=== PATIENT | female | born 1960 | race Caucasian/White ===

== ENCOUNTER 2019-08-10 13:36 | Outpatient (CLI) | payer BC ==
--- NOTE | 2019-08-10 14:45 | MMO ---
Bilateral MAMMO Bilat Diag [id number]. CLINICAL HISTORY: Patient is 59 years old and is seen for diagnostic exam. The patient has no family history of breast cancer. The patient has no personal history of cancer. VIEWS: The views performed were: bilateral craniocaudal with tomosynthesis; bilateral mediolateral oblique with tomosynthesis; and bilateral mediolateral with tomosynthesis. This study has been interpreted with the assistance of computer-aided detection. MAMMOGRAM FINDINGS: The breasts are heterogeneously dense, which could obscure a lesion on mammography. NO MAMMOGRAPHIC OR SONOGRAPHIC ABNORMALITIES ARE PRESENT TO CORRELATE WITH THE SITE OF PALPABLE CONCERN OF THE LEFT UPPER BREAST. THE PATIENT WILL BE REFERRED BACK TO HER CLINICIAN FOR FURTHER CARE. BIOPSY SHOULD NOT BE PRECLUDED BY THE ABSCENCE OF IMAGING FINDINGS, IN THE SETTING OF CLINICAL CONCERN FOR MALIGNANCY. There are no suspicious masses, suspicious calcifications, or new areas of architectural distortion. IMPRESSION: THERE IS NO MAMMOGRAPHIC EVIDENCE OF MALIGNANCY. A ROUTINE FOLLOW-UP MAMMOGRAM IN 1 YEAR IS RECOMMENDED. THE RESULTS OF THIS EXAM WERE SENT TO THE PATIENT. ACR BI-RADS Category 2 - Benign finding MAMMOGRAPHY NOTE: 1. A negative mammogram report should not delay a biopsy if a dominant of clinically suspicious mass is present. 2. Approximately 10% to 15% of breast cancers are not detected by mammography. 3. Adenosis and dense breasts may obscure an underlying neoplasm. Reported by: KATJA SUMMERS MD Electonically Signed: [id number]
--- NOTE | 2019-08-10 15:22 | ULT ---
SOFT TISSUE ULTRASOUND OF THE UPPER LEFT CHEST WALL ADDITIONAL WHELAN SCALE ULTRASOUND IMAGES WERE OBTAINED OF THE LEFT SERNOCLAVICULAR JOINT: TECHNIQUE: Whelan scale images were obtained of the regions of palpable interest in the left upper chest wall. FINDINGS: Within the upper left chest wall in the palpable region of interest, no suspicious sonographic mass o r lymphadenopathy is noted. The visualized chest wall appears within normal limits. Upon further discussion with the patient, the patient reported that the palpable abnormality was near the sternoclavicular joint and not the upper left breast. Ultrasound evaluation of the left sternoclavicular joint demonstrates some mild hypertrophic change i nvolving the bones of the manubrium and clavicular head consistent with osteoarthrosis. There is als o specular reflectors within the hypertrophied joint capsule consistent with calcium deposition. The re is also mild to moderate joint effusion within the left sternoclavicular joint. IMPRESSION: 1. No suspicious sonographic abnormality is seen within the left upper chest wall. 2. There is hypertrophic change with associated joint effusion and joint capsular hypertrophy of the left sternoclavicular joint. The patient reports this joint gets inflamed and red with significant pain with referral of the pain along the anterior left chest wall. With the findings that are curren tly presented, findings can be seen with a crystalline-induced arthropathy such as gout or pseudogout . Inflammatory arthropathies can also present this way. Recommend correlation with radiographic niesha luation of the left sternoclavicular joint in addition to radiographic evaluation of the hands. Look ing for imaging markers of inflammatory or crystalline induced arthropathy. Rheumatology consul tation with laboratory workup may be helpful as well. POS: OFF
== END 2019-08-10 13:37 | disposition home or self-care (01) ==
LOC: BICMAMMO 13:36
PROVIDERS: ATTEND Family Medicine
DX: N63.20 Unspecified lump in the left breast, unspecified quadrant (principal)
CPT/HCPCS: 77066; G0279

== ENCOUNTER 2019-10-08 07:57 | Outpatient (CLI) | payer BC ==
--- NOTE | 2019-10-08 08:53 | CT ---
CT ABDOMEN AND PELVIS WITH IV CONTRAST 10/08/2019 CLINICAL INFORMATION: Mid abdominal pain and left lower quadrant abdominal pain since May. Constipation. COMPARISON: 01/12/2019 Technique: Multiple contiguous axial CT images are obtained through the abdomen and pelvis with IV contrast. Cor onal reformatted images are provided. FINDINGS: Lower Chest: Atelectasis right lung base. Vessels: Vascular calcifications are seen in the abdominal aorta and involving the iliac arteries. Abdomen: Portal vein:Patent Gallbladder: Within normal limits for CT imaging. Liver: within normal limits. Spleen: within normal limits. Pancreas: within normal limits. Adrenals: within normal limits. Kidneys: within normal limits. Bowel: Small to moderate amount of retained fecal material is seen throughout the colon. Loops of sma ll bowel are normal in caliber. Appendix: The appendix is visualized and normal in caliber. Peritoneum: No ascites or free air; no fluid collection. Mesentery and Retroperitoneum: No enlarged mesenteric or retroperitoneal lymph nodes. Abdominal Wall: Tiny fat-containing umbilical hernia is again present. Pelvis: Reproductive Organs: Uterus is not visualized and likely surgically absent. Pelvis within normal limits. Bladder: within normal limits. Bones: Mild degenerative changes are seen in the spine. IMPRESSION: 1. No acute findings are seen in the abdomen or pelvis. 2. Constipation. 3. Hysterectomy.
[2019-10-08] MEDS ORDERED: ISOVUE-370 76%-LOCM 1 ML ONE (13:18)
== END 2019-10-08 07:58 | disposition home or self-care (01) ==
LOC: BICCT 07:57
PROVIDERS: ATTEND Internal Medicine Gastroenterology
DX: K58.1 Irritable bowel syndrome with constipation (principal); R10.13 Epigastric pain; R10.32 Left lower quadrant pain; Z80.0 Family history of malignant neoplasm of digestive organs; Z90.710 Acquired absence of both cervix and uterus
CPT/HCPCS: 74177; Q9966

== ENCOUNTER 2022-01-14 09:11 | Outpatient (CLI) | payer BC | END 2022-01-14 09:12 | disposition home or self-care (01) | LOC: BICMAMMO 09:11 | PROVIDERS: ATTEND Internal Medicine Rheumatology | DX: M46.1 Sacroiliitis, not elsewhere classified (principal); E55.9 Vitamin D deficiency, unspecified; G89.4 Chronic pain syndrome; K21.9 Gastro-esophageal reflux disease without esophagitis; M25.50 Pain in unspecified joint; M85.852 Other specified disorders of bone density and structure, left thigh; M85.851 Other specified disorders of bone density and structure, right thigh | CPT/HCPCS: 72202; 77080 ==

== ENCOUNTER 2022-01-19 08:55 | Emergency (ER) | payer BC | END 2022-01-19 09:55 | disposition home or self-care (01) | LOC: ERS 08:55 | DX: T42.6X1A Poisoning by other antiepileptic and sedative-hypnotic drugs, accidental (unintentional), initial encounter (principal); R53.83 Other fatigue; E78.5 Hyperlipidemia, unspecified; E78.00 Pure hypercholesterolemia, unspecified; I10 Essential (primary) hypertension; Z79.899 Other long term (current) drug therapy; Z87.891 Personal history of nicotine dependence | CPT/HCPCS: 99284 ==

== ENCOUNTER 2022-12-21 13:07 | Outpatient (CLI) | payer BC | END 2022-12-21 13:08 | disposition home or self-care (01) | LOC: BICRAD 13:07 | PROVIDERS: ATTEND Family Medicine | DX: J18.9 Pneumonia, unspecified organism (principal) | CPT/HCPCS: 71046 ==

== ENCOUNTER 2024-02-09 12:10 | Outpatient (CLI) | payer BC | END 2024-02-09 12:11 | disposition home or self-care (01) | LOC: BICMAMMO 12:10 | PROVIDERS: ATTEND Family Medicine | DX: Z12.31 Encounter for screening mammogram for malignant neoplasm of breast (principal) | CPT/HCPCS: 77063; 77067 ==